=== PATIENT | female | born 2000 | race Hispanic/Latino ===

== ENCOUNTER 2024-10-04 22:55 | Inpatient (IN) | payer MEDICAID, SELFPAY ==
[2024-10-04 22:59] VITALS: BP 154/74
--- NOTE | 2024-10-04 23:50 | PM.OBHP.IH.1 ---
OB HPI Date/Time Date of admission: 10/04/24 Date Patient Seen: 10/04/24 Time Patient Seen: 23:00 History of Present Condition Chief complaint: labor Estimated Gestational Age (weeks): 36+1 : 2 Para: 0 Narrative: 24yo at 36w2d by 24wk US presents to labor and delivery, transfer from [facility] after presenting [facility] with c/o SROM, contractions. Patient is Croatian speaking only, documented late entry to PNC followed by [facility] (Dr. Obrien). OSH PNC records requested and faxed, unable to determine at what point patient entered into regular PNC however documentation from labs as early as 04/27/24. Per review of records patient is dated by 24wk US with >30d discrepancy from stated EDC. She was initiated on daily LD-ASA secondary to nulliparity and BMI >30. OBHx significant for reported early SAB without complicaton. Current course notable for late entry into PNC, late 2nd trimester dating US. Unknown GBS (collected at time of last PNC visit at 36+0 however not resulted). Additional documentation of UDip +proteinuria in 3rd trimester without full PIH labs (Pr/Cr orded but not yet resulted). On presentation patient states PROM of clear fluid at approximately 1700 on 10/04 with onset of contractions approximately 20min later. Patient was unable to be transferred to [facility] via flight from [place] due to weather and was brought to closest receiving facility ([facility]). On arrival patient is actively breathing through contractions, +FM, denies MEEHAN/vision changes/RUQ pain, swelling. Initial BP 178/96, 147/96, 154/74 in setting of active labor Entirety of interview, assessment and completion of informed consent with assistance of Croatian [employer] #[id number] care: limited care (late entry, regular care once established ) Dating criteria OB: based on 2nd trimester US only (dated by 24wk US >30d discrepancy from stated EDC ) Narrative: OSH records obtained ([facility]) 04/27/24: O neg, ab screen neg h/h 12.7/39.9 HIV/RPR/HepB/HepC non-reactive GC/CT ne A1c 5.5 urine culture mixed darlin 05/16/24: cfDNA low-risk, XX MSAFP screen negative varicella immune CF/SMA/Frag X negative Hgb electrophoresis normal ype GC/CT neg pap NILM UDS neg 07/10/24: RPR NR h/h 11.5/35.5 1h OGTT 109 ab screen neg Rhogam administered 07/28/24 08/07/24: 1h OGTT 97 anatomy scan 07/13/24 at 24w2d, discordant from LMP with change in CATE to 10/31/24; reported normal anatomic survey Preadmission Labs Last OB Lab Results: Blood Type O Negative 10/04/24 23:35 Antibody Screen Negative 10/04/24 23:35 Hct 36.4 % (36-46) 10/04/24 23:35 Hgb 12.3 g/dL (12.0-16.0) 10/04/24 23:35 -: Chlamydia screen: negative, Gonorrhea screen: negative and Urine: negative -: PAP smear: Normal Genetic Screens: Cell-free DNA: Normal (xx low risk ) and Alpha-fetoprotein: Normal (screen negative ) External Labs -: Urine: negative Prior (ies) Spontaneous abortions: 1 Evaluation Evaluation Baseline heart rate: 130 Variability: Moderate (11-25) monitor accelerations: Present Monitor Decelerations: Episodic (variable) Contraction Frequency (minutes): 3 Uterine Contraction Intensity: Strong/Firm Category of Tracing: Reactive Status: Category l Dilation (cm): 4 Effacement (%): 80 Dilation: 3-4 cm Effacement: >/=80% station: -2 Position of cervix: mid Consistency: soft Sousa score: 9 PFSH Social History Smoking Status: Never smoker Meds Home Medications and Allergies Home Medications Medication Instructions Recorded Confirmed Type No Known Home Medications 02/14/24 02/14/24 History Allergies Allergy/AdvReac Type Severity Reaction Status Date / Time No Known Drug Allergies Allergy Verified 02/14/24 12:56 Review of Systems Review of Systems ROS: Yes All systems reviewed with the patient and are negative except as otherwise documented OB Exam Vital signs Blood Pressure: 147/96 Pulse Rate: 100 Respiratory Rate: 20 Temperature: 98.4 F HENMT Head: normal to inspection Resp Effort & Inspection: normal respiratory effort and able to speak in complete sentences Cardio Rate: tachycardic Extremities Lower extremity: Yes normal to inspection GI Inspection: normal to inspection Palpation: Yes soft Other: gravid, tommy cephalic 6.5-7# External Female Exam: Yes normal external appearance Speculum Exam - Vagina: Yes normal appearance of the vagina Amniotic Fluid: clear Assessment and Plan Assessment and Plan Assessment and Plan narrative: 24yo at 36w1d by 24wk US presents in active labor, +PROM confirmed on admission Late labor IV amp secondary to GBS unknown <37wga CEFM/toco, Cat 1 tracing pt undecided re: intrapartum analgesia, options reviewed including limited IV analgesia prior to advanced cervical dilation, nitrous oxide, epidural; pt contemplative and encouraged to notify staff if she desires anticipate Time-Based Coding :: [TOTAL MINUTES] spent with patient and on the chart (including review of chart, obtaining history, exam, reviewing outside data, placing orders, documenting exam and treatment plan, and counseling patient) on [DATE].
[2024-10-05 00:07] LABS: Add Manual Diff / Slide Review NO; Basophils Absolute Auto 100 /uL (0-100); Basophils Percent Auto 0.5 % (0-2); Eosinophils Absolute Auto 200 /uL (0-450); Eosinophils Percent Auto 1.1 % (2-4); Hematocrit 36.4 % (36-46); Hemoglobin 12.3 g/dL (12.0-16.0); Lymphocytes Absolute Auto 2400 /uL (1100-4500); Lymphocytes Percent Auto 16.7 % (25-40); Mean Corpuscular HGB Conc 33.9 % (30-36); Mean Corpuscular Hemoglobin 28.2 PG (26-34); Mean Corpuscular Volume 83.2 fL (80-100); Monocytes Absolute Auto 500 /uL (0-900); Monocytes Percent Auto 3.5 % (3-14); Neutrophils Absolute Auto 11300 /uL (1500-7000); Neutrophils Percent Auto 78.2 % (50-75); Platelet Count 274 X10^3/uL (150-400); Red Blood Cell Count 4.38 X10^6/uL (4.0-5.2); Red Cell Distribution Width 13.5 % (11.6-14.8); White Blood Cell Count 14.5 X10^3/uL (4.5-11.0)
[2024-10-05] MEDS: LACTATED RINGERS 1,000 ML 100 ML IV ×2 (00:10→16:07)
[2024-10-05] MEDS: AMPICILLIN 2,000 MG in SODIUM CHLORIDE 0.9% 100 ML 200 MG IV (00:10)
[2024-10-05 01:15] LABS: Alanine Aminotransferase 25 IU/L (<35); Albumin 4.1 g/dL (3.5-5.0); Albumin Globulin Ratio 1.2 (1.0-2.8); Alkaline Phosphatase 187 U/L (38-126); Aspartate Aminotransferase 38 IU/L (14-36); BUN Creatinine Ratio 21.2 (6-22); Bilirubin Total 0.4 mg/dL (0.2-1.3); Blood Urea Nitrogen 11 mg/dL (7-17); Calcium 9.3 mg/dL (8.4-10.2); Carbon Dioxide 16 mmol/L (22-32); Chloride 103 mmol/L (98-107); Estimated Glomerular Filt Rate > 60 mL/min (>60); Globulin 3.4 g/dL (1.7-4.1); Glucose 125 mg/dL (70-100); HEMOLYSIS < 15 (0-50); Potassium 3.8 mmol/L (3.4-5.1); Sodium 134 mmol/L (137-145); Total Protein 7.5 g/dL (6.3-8.2)
[2024-10-05 01:20] VITALS: BP 147/96; PULSE 100; RESP 20; TEMP 36.9
[2024-10-05] MEDS: AMPICILLIN 1,000 MG in SODIUM CHLORIDE 0.9% 100 ML 200 MG IV (03:44)
--- NOTE | 2024-10-05 05:40 | PM.OBPRVD ---
Events: Labor < 37 wks Labor & Delivery Delivery date: 10/05/24 Delivery Time: 05:11 Intrapartal Events: None Cervical ripening method: none Induction method: none Delivery monitor: external FHT Route of delivery: L&D Laceration Description: Vaginal - 1st Degree Delivery repair: vicryl Estimated blood loss (mL): 200 Anesthesia Type: None Complications: none Baby 1: Infant gender: Female Presentation: compound (vertex with nuchal RUE/hand ) Position: Right Occiput Anterior Placenta delivery description: Spontaneous Cord Vessel Description: 3 Vessels score (1 min): 7 score (5 min): 9 Narrative: Patient in dorsal lithotomy position, C/C/0. With subsequent maternal expulsive efforts slow descent of station to +2. Delivery of head in BRITTNI, noted compound presentation with nuchal RUE/hand at level of mentum, unable to be reduced. Spontaneous delivery of head, anterior shoulder delivered with gentle downward traction followed by rapid delivery of posterior shoulder and body. Short umbilical cord noted, vigorous LBFMI placed on maternal abdomen for further stimulation and resuscitation. Delayed cord clamping x2min, cord clamped x2, cut by FOB and 3VC noted. Cord blood gas obtained and passed off the field, known maternal Rh negative status. Placenta delivered spontaneously at 0518, inspected and noted to be intact. Perineal exam revealed a shallow 2nd degree vaginal laceration. Unable to palpate fundus secondary to distended bladder. Patient straight catheterized in sterile fashion for 475cc concentrated urine. Fundus palpated and firm, 1-U. Vaginal laceration reapproximated with single figure of 8 2-0 vicryl with subsequent hemostasis noted. All counts correct x2. Plan for aftercare: Routine care
[2024-10-05] MEDS: ACETAMINOPHEN 325 MG TABLET 650 MG PO ×2 (06:36→13:23)
[2024-10-05] MEDS: IBUPROFEN 600 MG TABLET PO ×2 (06:36→13:23)
[2024-10-05] MEDS: DERMOPLAST SPRAY 20% 60 ML 1 SPRAY TOP (06:38)
[2024-10-05] MEDS: METHYLERGONOVINE 0.2 MG TABLET PO (15:13)
[2024-10-05] MEDS: miSOPROStoL 200 MCG TABLET 800 MCG PR (15:53)
[2024-10-05] MEDS: OXYTOCIN PREMIX 30 UNIT/500 ML PLAST..BAG 75 UNIT IV (16:12)
[2024-10-05] MEDS: RHO(D) IMMUNE GLOBULIN 1,500 UNIT SYRINGE 1500 UNIT IM (21:57)
[2024-10-06] MEDS: ACETAMINOPHEN 325 MG TABLET 650 MG PO (04:48)
[2024-10-06] MEDS: IBUPROFEN 600 MG TABLET PO (04:48)
[2024-10-06] MEDS: MEASLES,MUMPS,RUBELLA VACC/PF 0.5 ML VIAL SUBCUT (14:24)
--- NOTE | 2024-10-06 17:11 | PM.OBDS.1 ---
Discharge Providers Provider Date of admission: 10/04/24 22:55 Discharge Date: 10/06/24 Primary care physician: Melissa Benson PA-C Consults: 10/04/24 23:48 Consult to Anesthesiology Urgent Comment: Consulting Provider: Anesthesiologist Reason for consultation: Epidural 10/06/24 05:35 Consult to Authorization Representative Routine Comment: Discharge provider: Kathleen Mercado MD Summary Hospital Course Date Patient Seen: 10/06/24 Time Patient Seen: 07:30 Diagnoses: premature rupture of membranes with onset of labor s/p spontaneous vaginal delivery delayed hemorrhage Hospital Course: 24yo PPD1 s/p PTSVD. Patient presented to facility via EMS ([facility]) at 36w2d with c/o PROM with onset of PTL approx 4h prior to arrival. Patient received ampicillin for GBS unknown, initial non-sustained severe and mild range BP in setting of active unmedicated labor without lab abnormality. Pt progressed to full dilation and had an uncomplicated second stage, delivery of vigorous LBFI with 7/9 Wgt 2409g. Shallow vaginal second degree laceration repaired in standard fashion. Pt had increase in bleeding approx 12h following delivery and received additional uterotonics (IV pitocin, methergine x2, rectal misoprostol) with subsequent resolution. Blood pressure normalized following delivery without evidence of PIH. Patient was discharged to home on PPD1 meeting all discharge milestones, close interval follow-up with primary OB requested and routine return precautions reviewed. Peripartum Data Infant Delivery Method: Natural Vaginal Laceration Description: Vaginal - 2nd Degree Episiotomy description: None complications: other (delayed PPH, resolved with medical management (pitocin, methergine, miso) without recurrence or sequelae) [place] 1: Gender: Female Disposition of : home Status at Discharge Cognitive/behavioral status at discharge: oriented Functional status at discharge: independent ambulation Overall status at discharge: patient is back to baseline Time Spent with Patient Time attestation: Total time spent providing and/or coordinating discharge services: Objective Labs 10/04/24 23:35 10/05/24 00:45 Labs: Laboratory Results - last 24 hr 10/04/24 10/06/24 23:35 06:15 Blood Type O Negative Antibody Screen Negative Maternal Bleed Cancelled Negative Exam Vital Signs (past 8 hours): maternal VSS/afebrile, normotensive; reviewed in OBIX Const General: cooperative, comfortable and well developed Nutritional Appearance: average body habitus Orientation: alert, awake and oriented x3 Limitations: mental status not altered Resp Effort & Inspection: normal respiratory effort and able to speak in complete sentences GI Palpation: soft Other: fundus firm << umb, non-tender Other: deferred, lochia minimal per RN, pt denies difficulty with urination Skin General: no rashes or lesions noted Neuro General: patient alert, patient awake and patient oriented x3 Extrem General: normal to inspection Psych Mental Status: mental status grossly normal Judgment: judgment good Discharge Plan Discharge Plan Patient Disposition: Home Provider Discharge Comment: [place] en la vagina domitila 6 semanas. No tener relaciones sexuales, tampones, duchas vaginales ni nadar en agua gabbi, piscinas ni jacuzzis. Consulte a martel m?dico si presenta dolor de dudley, sangrado abundante o fiebre. Discharge orders & Medications Prescriptions: New acetaminophen 325 mg Tablet 650 mg PO Q6HR PRN (Reason: Pain, Mild (1-3)) Qty: 30 0RF Dermoplast (with menthol) 20-0.5 % Aerosol 1 spray topical Q1HR PRN (Reason: perineal pain) Qty: 56 2RF ibuprofen 600 mg Tablet 600 mg PO Q6HR PRN (Reason: Pain, Mild (1-3)) Qty: 30 0RF Purelan Cream 1 applic topical PRN PRN (Reason: Tenderness) Qty: 7 3RF No Action No Known Home Medications Follow up/Referrals: Melissa Benson PA-C [Primary Care Provider] - Phillip Obrien MD [Non-Staff] - (Follow up in one week with Dr. Obrien at [facility] on October 12 at 10:45am. Follow up in six weeks with Dr. Obrien at [facility] on November 17, at 3:00pm. ) Visit Report/Discharge Packet Instructions: DI for Labor and Delivery, Vaginal Stand Alone Forms: Discharge: Care, Patient Portal/API, Stroke Signs & Symptoms Discharge Data Primary Care Provider: Melissa Benson
[2024-10-06 19:36] VITALS: BP 107/67; PULSE 85; RESP 20; TEMP 36.9
== END 2024-10-06 19:03 | disposition home or self-care (01) | DRG 807 ==
PROVIDERS: Admitting Provider Obstetrics & Gynecology; PCP Physician Assistant; Referring Provider Obstetrics & Gynecology; Visit Provider Obstetrics & Gynecology
DX: O60.14X0 Preterm labor third trimester with preterm delivery third trimester, not applicable or unspecified (principal); Z37.0 Single live birth; Z3A.36 36 weeks gestation of pregnancy; O70.1 Second degree perineal laceration during delivery; O13.4 Gestational [pregnancy-induced] hypertension without significant proteinuria, complicating childbirth
CPT/HCPCS: 36415; 59050; 80053; 85025; 85461; 86850; 86900; 86901; G0379; J0290; J2590; J2790; S0191